=== PATIENT | female | born 2000 | race Asian ===

== ENCOUNTER 2022-11-05 16:49 | Emergency (ER) | payer BC ==
--- NOTE | 2022-11-05 16:58 | ED Physician Documentation ---
PD HPI NVD - Stated complaint Stated Complaint: VOMITING - Chief complaint Chief Complaint: Abd Pain - History obtained from History obtained from: Patient - History of Present Illness Timing - onset: How many hours ago (Onset of nausea and vomiting about 3 hours ago. Emesis multiple times during that time. No hematemesis. Concurrent symptoms of some mild blurred vision with light sensitivity and also developed headache. She has had episodes like this every few days or up to every 1 or 2 weeks at times x months.) Timing - duration: Hours Timing - details: Abrupt onset, Still present Associated symptoms: Loss of appetite. No: Fever, Abdominal pain, Hematemesis Contributing factors: Other (denies cannibis use.). No: Sick contact, Bad food, Alcohol use Improved by: No: Eating, Vomiting Worsened by: Eating Similar symptoms before: No diagnosis (She states she has had similar episodes of abrupt onset nausea with vomiting associated with some light sensitivity and typically development of headache. No diarrhea or abdominal pain with them. She has had episodes every few days to a week or 2 fairly regularly over the past several months.) Recently seen: Clinic (She did go to a clinic following one of the episodes and was prescribed some nausea medicine and told to take ibuprofen for the headache. No further testing or suggestive of diagnosis.) Review of Systems Constitutional: denies: Fever, Chills Nose: denies: Rhinorrhea / runny nose, Congestion Throat: denies: Sore throat Respiratory: denies: Cough GI: reports: Nausea, Vomiting. denies: Abdominal Pain, Diarrhea, Hematemesis, Bloody / black stool : denies: Dysuria, Now EGA Musculoskeletal: denies: Neck pain, Back pain Neurologic: reports: Headache (intermittently asociated with the episodes of v omiting.). denies: Focal weakness, Numbness PD PAST MEDICAL HISTORY - Past Medical History Cardiovascular: None Respiratory: None Neuro: None Endocrine/Autoimmune: None - Present Medications Home Medications: Ambulatory Orders Medication Instructions Recorded Confirmed Naproxen 500 mg PO BID PRN #20 tab 11/05/22 Ondansetron Odt [Zofran] 4 mg TL Q6H PRN #20 tablet 11/05/22 Rizatriptan Benzoate [Maxalt] 10 mg PO Q4H PRN #6 tab 11/05/22 - Allergies Allergies/Adverse Reactions: Allergies Allergy/AdvReac Type Severity Reaction Status Date / Time No Known Drug Allergies Allergy Verified 11/05/22 16:55 PD ED PE NORMAL - Vitals Vital signs reviewed: Yes - General General: Alert and oriented X 3, Well developed/nourished - HEENT HEENT: PERRL, EOMI - Neck Neck: Supple, no meningeal sign, No adenopathy - Cardiac Cardiac: RRR (regular with some tachycardia), No murmur - Respiratory Respiratory: Clear bilaterally - Abdomen Abdomen: Normal bowel sounds, Soft, Non distended, No organomegaly, Other (mild tenderness epigastric without guarding. Not tender RUQ. ) - Female Female : Deferred - Rectal Rectal: Deferred - Back Back: No CVA TTP - Derm Derm: Normal color, Warm and dry - Neuro Neuro: Alert and oriented X 3, No motor deficit, Normal speech Results - Vitals Vitals: Vital Signs - 24 hr 11/05/22 16:52 Temperature 36.6 C Heart Rate 108 H Respiratory 22 Rate Blood Pressure 132/75 H O2 Saturation 96 Oxygen O2 Source Room air - Labs Labs: Laboratory Tests 11/05/22 11/05/22 18:31 18:31 WBC 10.4 RBC 4.92 Hgb 13.1 Hct 40.8 MCV 82.9 MCH 26.6 L MCHC 32.1 RDW 14.0 Plt Count 321 MPV 11.4 H Neut # (Auto) 7.5 H Lymph # (Auto) 2.2 [place] # (Auto) 0.6 Eos # (Auto) 0.0 Baso # (Auto) 0.0 Absolute Nucleated RBC 0.00 Nucleated RBC % 0.0 Sodium 137 Potassium 3.7 Chloride 103 Carbon Dioxide 26 Anion Gap 8.0 BUN 7 Creatinine 0.5 L Estimated GFR (MDRD) 154 Glucose 99 Calcium 9.8 Total Bilirubin 0.6 AST 42 ALT 55 Alkaline Phosphatase 61 Total Protein 8.3 Albumin 4.5 Globulin 3.8 Albumin/Globulin Ratio 1.2 Lipase 16 PD Medical Decision Making - ED course Complexity details: re-evaluated patient, considered differential (Consider gastroenteritis or biliary colic. She denies cannabis use so no hyperemesis there. The association of the vomiting episodes over several hours to a day associated with some at times blurred vision and light sensitivity and most always followed by a headache would be suggestive of migraine), d/w patient Departure - Departure Clinical Impression: Nausea & vomiting, Headache Condition: Stable Record reviewed to determine appropriate education?: Yes Instructions: ED Nausea Vomiting Follow-Up: [facility] [Provider Group] [facility] [Provider Group] Prescriptions: Rizatriptan Benzoate [Maxalt] 10 mg PO Q4H PRN #6 tab PRN Reason: Migraine Naproxen 500 mg PO BID PRN #20 tab PRN Reason: Headache Ondansetron Odt [Zofran] 4 mg TL Q6H PRN #20 tablet PRN Reason: Nausea / Vomiting Comments: I believe your episodes rather sound like migraine headache episodes with a very prominent nausea and vomiting. Initially I would suggest trying a combination of nausea medicine with some ibuprofen and an antimigraine medication (rizatriptan). With subsequent episodes try this combination see if it improves your symptoms rather readily over 20 or 30 minutes. If so that may be more conclusive on the idea of migraines and then following up with primary care for further prescriptions of either the medication to take when you get the headaches or if its more confirmed as migraine, there are medications to take daily to try to reduce the number of episodes. I sent your prescriptions to your preferred pharmacy. For the current episode we did give you some IV fluids and medications targeted towards migraine but also just nausea in general. Forms: PCP List
[2022-11-05] MEDS ORDERED: KETOROLAC 15 MG/ML VIAL IVP STA (17:09)
[2022-11-05] MEDS ORDERED: PROCHLORPERAZINE 10 MG/2 ML VIAL IVP STA (17:09)
[2022-11-05] MEDS ORDERED: SODIUM CHLORIDE 0.9% 1,000 ML IV STA (17:09)
[2022-11-05] MEDS ORDERED: FAMOTIDINE 20 MG/2 ML VIAL IVP STA (17:10)
[2022-11-05 18:43] LABS: BASOPHILS % (AUTO) 0.4 %; EOSINOPHILS % (AUTO) 0.1 %; HCT - HEMATOCRIT 40.8 % (37.0-47.0); HGB - HEMOGLOBIN 13.1 g/dL (12.0-16.0); LYMPHOCYTES # (AUTO) 2.2 10^3/uL (1.5-3.5); MEAN CORPUSCULAR HEMOGLOBIN 26.6 pg (27.0-31.0); MEAN CORPUSCULAR HGB CONC 32.1 g/dL (32.0-36.0); MEAN CORPUSCULAR VOLUME 82.9 fL (81.0-99.0); MEAN PLATELET VOLUME 11.4 fL (7.9-10.8); MONOCYTES # (AUTO) 0.6 10^3/uL (0.0-1.0); MONOCYTES % (AUTO) 6.2 %; NEUTROPHILS # (AUTO) 7.5 10^3/uL (1.5-6.6); PLT - PLATELET COUNT 321 10^3/uL (130-450); RED BLOOD COUNT 4.92 10^6/uL (4.20-5.40); WHITE BLOOD COUNT 10.4 x10^3/uL (4.8-10.8)
[2022-11-05 19:00] LABS: ALBUMIN 4.5 g/dL (3.2-5.5); ALBUMIN/GLOBULIN RATIO 1.2 (1.0-2.2); BILIRUBIN,TOTAL 0.6 mg/dL (0.2-1.0); CALCIUM 9.8 mg/dL (8.5-10.3); CREATININE 0.5 mg/dL (0.6-1.3); POTASSIUM 3.7 mmol/L (3.5-4.5); TOTAL PROTEIN 8.3 g/dL (6.4-8.9)
[2022-11-05 21:14] LABS: GLUCOSE, URINE (UA) NEGATIVE (NEGATIVE); KETONES,URINE (UA) 40 mg/dL (NEGATIVE); LEUKOCYTE ESTERASE, URINE NEGATIVE (NEGATIVE); NITRITE,URINE NEGATIVE (NEGATIVE); OCCULT BLOOD,URINE NEGATIVE (NEGATIVE); PROTEIN,URINE TRACE mg/dL (NEGATIVE); UROBILINOGEN,URINE 1 (NORMAL) E.U./dL (NORMAL)
[2022-11-05 21:16] LABS: BILIRUBIN,URINE NEGATIVE (NEGATIVE); CLARITY,URINE CLEAR (CLEAR); HCG UR QUAL NEGATIVE; ICTOTEST,URINE NEGATIVE
--- NOTE | 2022-11-05 21:19 | ED Physician Documentation ---
ED Addendum - Addendum Addendum: 11/05/22 21:19 Difficult IV access, ultrasound-guided IV placed in left AC by myself. Laboratory work is reviewed, patient states she feels much better after receiving medications. She states she does not want to wait to see if she can tolerate p.o., she is happy being discharged right now. Medication sent to [facility] pharmacy in [place]. PCP follow-up advised.
[2022-11-05 21:46] VITALS: BP 148/70
== END 2022-11-05 21:38 | disposition home or self-care (01) ==
LOC: ED 16:49
DX: R11.2 Nausea with vomiting, unspecified (principal); R51.9 Headache, unspecified
CPT/HCPCS: 36415; 80053; 81001; 81003; 81025; 83690; 85025; 87086; 96374; 96375; 99283